=== PATIENT | male | born 1985 | race Caucasian/White ===

== ENCOUNTER 2019-01-07 13:18 | Emergency (ER) | payer MEDICAID ==
[2019-01-07] MEDS ORDERED: Morphine 2 MG/ML Syringe IVPUSH ONE (13:37)
[2019-01-07] MEDS ORDERED: Sodium Chloride 0.9% 10 ML Syringe FLUSH PRN (13:38)
[2019-01-07] MEDS ORDERED: Ketorolac 30 MG/ML SDV IVPUSH ONE (13:38)
[2019-01-07] MEDS ORDERED: Morphine 2 MG/ML Syringe ONE (13:49)
[2019-01-07] MEDS ORDERED: LORazepam 2 MG/ML SDV IVPUSH ONE (13:50)
--- NOTE | 2019-01-07 13:52 | EDM.PDOC ---
ED HPI GENERAL MEDICAL PROBLEM - General Stated Complaint: ABDOMINAL PAIN Time Seen by Provider: 01/07/19 13:30 Source of Information: Reports: Patient, Other (friends) History Limitations: Reports: Other (pain and abdominal cramping) - History of Present Illness INITIAL COMMENTS - FREE TEXT/NARRATIVE: This is a 33yo M here for severe 10/10 writhing hypogastric abdominal pain. He states he cannot stand it. He was dropped off by his friends. He is from [facility] and denies any prior abdominal issues. He is a methamphetamine user but denies other drugs. He denies other concerns. No BM issues, no appetite issues. He states his pain started 6 hours ago and has worsened the whole drive up here. His friends note that he started to get confused and then they brought him to the ER. Onset: Sudden Duration: Hour(s):, Getting Worse Location: Reports: Abdomen Quality: Reports: Stabbing Severity: Severe Improves with: Reports: None Worsens with: Reports: None Associated Symptoms: Reports: Confusion - Related Data Allergies Allergy/AdvReac Type Severity Reaction Status Date / Time No Known Allergies Allergy Verified 01/07/19 13:39 ED ROS GENERAL - Review of Systems Review Of Systems: ROS reveals no pertinent complaints other than HPI. ED EXAM, GI/ABD - Physical Exam Exam: See Below Exam Limited By: Other (Patient is at times perfectly coherent and then other times babbling for a brief moment and possibly due to the pain other other drug use.) General Appearance: Alert, WD/WN, Severe Distress Eyes: Bilateral: EOMI Ears: Normal External Exam Nose: Normal Inspection Throat/Mouth: Normal Inspection Head: Atraumatic, Normocephalic Neck: Normal Inspection, Supple, Non-Tender Respiratory/Chest: No Respiratory Distress, Lungs Clear, Normal Breath Sounds, No Accessory Muscle Use Cardiovascular: Normal Peripheral Pulses, Regular Rate, Rhythm GI/Abdominal Exam: Normal Bowel Sounds, Guarding, Tender Rectal (Males) Exam: Normal Exam Back Exam: Normal Inspection, Full Range of Motion Extremities: Normal Inspection, Normal Range of Motion, Non-Tender Neurological: Alert, CN II-XII Intact, Normal Cognition, Disoriented Psychiatric: Anxious Skin Exam: Warm, Dry, Intact, Normal Color Course - Vital Signs Last Recorded V/S: Last Vital Signs Temp Pulse 93 01/07/19 14:39 Resp 20 01/07/19 14:39 BP 146/86 H 01/07/19 14:39 Pulse Ox 100 01/07/19 14:39 - Orders/Labs/Meds Orders: Active Orders 24 hr Category Date Time Status Cardiac Monitoring [RC] .As Directed Care 01/07/19 14:47 Active Lizama Catheter Insertion [Insert Urinary Catheter] [OM. Care 01/07/19 16:00 Ordered PC] Q24H Urinary Catheter Assessment [RC] ASDIRECTED Care 01/07/19 15:49 Active Sodium Chloride 0.9% [Saline Flush] Med 01/07/19 13:38 Active 10 ml FLUSH ASDIRECTED PRN Peripheral IV Insertion Adult [OM.PC] Routine Oth 01/07/19 13:38 Ordered Medication Orders Sodium Chloride (Saline Flush) 10 ml FLUSH ASDIRECTED PRN PRN Reason: Keep Vein Open Labs: Laboratory Tests 01/07/19 01/07/19 01/07/19 Range/Units 13:40 13:40 13:40 WBC 10.9 (4.0-11.0) K/uL RBC 5.23 (4.50-6.50) M/uL Hgb 15.3 (13.0-18.0) g/dL Hct 44.2 (40.0-54.0) % MCV 85 (76-96) fL MCH 29.3 (27.0-32.0) pg MCHC 34.6 (31.0-35.0) g/dL RDW 13.0 (11.0-16.0) % Plt Count 257 (150-400) K/uL MPV 10.6 H (6.0-10.0) fL Neut % (Auto) 81.2 H (45.0-70.0) % Lymph % (Auto) 11.8 L (20.0-40.0) % [place] % (Auto) 6.0 (3.0-10.0) % Eos % (Auto) 0.7 L (1.0-5.0) % Baso % (Auto) 0.3 (0.0-0.5) % Neut # (Auto) 8.85 H (2.00-7.50) K/uL Lymph # (Auto) 1.28 L (1.50-4.00) K/uL [place] # (Auto) 0.65 (0.20-0.80) K/uL Eos # (Auto) 0.08 (0.04-0.40) K/uL Baso # (Auto) 0.03 (0.02-0.10) K/uL Sodium 139 (136-145) mmol/L Potassium 3.7 (3.5-5.1) mmol/L Chloride 101 (98-107) mmol/L Carbon Dioxide 23.5 (21.0-32.0) mmol/L Anion Gap 18.2 H (5.0-15.0) mmol/L BUN 12 (8-26) mg/dL Creatinine 0.97 (0.70-1.30) mg/dL Est Cr Clr Drug Dosing TNP Estimated GFR (MDRD) > 60 (>60) MLS/MIN BUN/Creatinine Ratio 12.4 (6-25) Glucose 104 H (74-100) mg/dL Lactic Acid 1.33 (0.90-1.70) mmol/L Calcium 8.8 (8.5-10.1) mg/dL Total Bilirubin 1.3 H (0.0-1.0) mg/dL AST 21 (15-37) U/L ALT 32 (12-78) U/L Alkaline Phosphatase 94 (46-116) U/L Total Protein 7.7 (6.4-8.2) g/dL Albumin 4.1 (3.4-5.0) g/dL Globulin 3.6 (2.2-4.2) g/dL Albumin/Globulin Ratio 1.1 (0.8-2.0) Amylase 21 L (25-115) U/L Urine Color Urine Appearance (CLEAR) Urine pH (5.0-8.0) Ur Specific [place] (1.003-1.030) Urine Protein (NEGATIVE) mg/dL Urine Glucose (UA) (NEGATIVE) mg/dL Urine Ketones (NEGATIVE) mg/dL Urine Occult Blood (NEGATIVE) Urine Nitrite (NEGATIVE) Urine Bilirubin (NEGATIVE) Urine Urobilinogen (0.2-1.0) E.U./dL Ur Leukocyte Esterase (NEGATIVE) Urine RBC /HPF Urine WBC /HPF Ur Squamous Epith Cells /HPF Urine Bacteria /HPF Urine Opiates Screen (NEGATIVE) Ur Oxycodone Screen (NEGATIVE) Urine Methadone Screen (NEGATIVE) Ur Barbiturates Screen (NEGATIVE) Ur Tricyclics Screen (NEGATIVE) Ur Phencyclidine Scrn (NEGATIVE) Ur Amphetamine Screen (NEGATIVE) U Methamphetamines Scrn (NEGATIVE) Urine MDMA Screen (NEGATIVE) U Benzodiazepines Scrn (NEGATIVE) U Cocaine Metab Screen (NEGATIVE) U Marijuana (THC) Screen (NEGATIVE) 01/07/19 01/07/19 Range/Units 14:48 14:48 WBC (4.0-11.0) K/uL RBC (4.50-6.50) M/uL Hgb (13.0-18.0) g/dL Hct (40.0-54.0) % MCV (76-96) fL MCH (27.0-32.0) pg MCHC (31.0-35.0) g/dL RDW (11.0-16.0) % Plt Count (150-400) K/uL MPV (6.0-10.0) fL Neut % (Auto) (45.0-70.0) % Lymph % (Auto) (20.0-40.0) % [place] % (Auto) (3.0-10.0) % Eos % (Auto) (1.0-5.0) % Baso % (Auto) (0.0-0.5) % Neut # (Auto) (2.00-7.50) K/uL Lymph # (Auto) (1.50-4.00) K/uL [place] # (Auto) (0.20-0.80) K/uL Eos # (Auto) (0.04-0.40) K/uL Baso # (Auto) (0.02-0.10) K/uL Sodium (136-145) mmol/L Potassium (3.5-5.1) mmol/L Chloride (98-107) mmol/L Carbon Dioxide (21.0-32.0) mmol/L Anion Gap (5.0-15.0) mmol/L BUN (8-26) mg/dL Creatinine (0.70-1.30) mg/dL Est Cr Clr Drug Dosing Estimated GFR (MDRD) (>60) MLS/MIN BUN/Creatinine Ratio (6-25) Glucose (74-100) mg/dL Lactic Acid (0.90-1.70) mmol/L Calcium (8.5-10.1) mg/dL Total Bilirubin (0.0-1.0) mg/dL AST (15-37) U/L ALT (12-78) U/L Alkaline Phosphatase (46-116) U/L Total Protein (6.4-8.2) g/dL Albumin (3.4-5.0) g/dL Globulin (2.2-4.2) g/dL Albumin/Globulin Ratio (0.8-2.0) Amylase (25-115) U/L Urine Color Yellow Urine Appearance Clear (CLEAR) Urine pH >= 9.0 H (5.0-8.0) Ur Specific [place] 1.015 (1.003-1.030) Urine Protein 30 H (NEGATIVE) mg/dL Urine Glucose (UA) Negative (NEGATIVE) mg/dL Urine Ketones 40 H (NEGATIVE) mg/dL Urine Occult Blood Small H (NEGATIVE) Urine Nitrite Negative (NEGATIVE) Urine Bilirubin Negative (NEGATIVE) Urine Urobilinogen 1.0 (0.2-1.0) E.U./dL Ur Leukocyte Esterase Negative (NEGATIVE) Urine RBC 10-20 H /HPF Urine WBC Not seen /HPF Ur Squamous Epith Cells Not seen /HPF Urine Bacteria Not seen /HPF Urine Opiates Screen Negative (NEGATIVE) Ur Oxycodone Screen Negative (NEGATIVE) Urine Methadone Screen Positive H (NEGATIVE) Ur Barbiturates Screen Negative (NEGATIVE) Ur Tricyclics Screen Negative (NEGATIVE) Ur Phencyclidine Scrn Negative (NEGATIVE) Ur Amphetamine Screen Positive H (NEGATIVE) U Methamphetamines Scrn Negative (NEGATIVE) Urine MDMA Screen Negative (NEGATIVE) U Benzodiazepines Scrn Negative (NEGATIVE) U Cocaine Metab Screen Negative (NEGATIVE) U Marijuana (THC) Screen Negative (NEGATIVE) Meds: Medications Generic Name Dose Route Start Last Admin Trade Name Freq PRN Reason Stop Dose Admin Sodium Chloride 10 ml 01/07/19 13:38 Saline Flush FLUSH ASDIRECTED PRN Keep Vein Open Discontinued Medications Generic Name Dose Route Start Last Admin Trade Name Freq PRN Reason Stop Dose Admin Hydromorphone HCl Confirm 01/07/19 13:54 01/07/19 15:43 Dilaudid Administered 01/07/19 13:55 Not Given Dose 2 mg .ROUTE .STK-MED ONE Hydromorphone HCl 1 mg 01/07/19 13:50 01/07/19 15:51 Dilaudid IVPUSH 01/07/19 13:51 1 mg ONETIME ONE Administration Hydromorphone HCl Confirm 01/07/19 14:10 01/07/19 15:43 Dilaudid Administered 01/07/19 14:11 Not Given Dose 2 mg .ROUTE .STK-MED ONE Hydromorphone HCl 2 mg 01/07/19 14:00 01/07/19 15:50 Dilaudid IVPUSH 01/07/19 14:01 2 mg ONETIME ONE Administration Hydromorphone HCl Confirm 01/07/19 16:10 Dilaudid Administered 01/07/19 16:11 Dose 2 mg .ROUTE .STK-MED ONE Ketorolac Tromethamine 30 mg 01/07/19 13:38 01/07/19 15:42 Toradol IVPUSH 01/07/19 13:39 30 mg ONETIME ONE Administration Lidocaine HCl Confirm 01/07/19 14:22 01/07/19 15:43 Xylocaine 2% Jelly Administered 01/07/19 14:23 Not Given Dose 5 ml .ROUTE .STK-MED ONE Lidocaine HCl 10 ml 01/07/19 15:48 Xylocaine 2% Jelly MUCMEM 01/07/19 15:49 ONETIME ONE Lorazepam 1 mg 01/07/19 13:50 01/07/19 15:41 Ativan IVPUSH 01/07/19 13:51 1 mg ONETIME ONE Administration Lorazepam Confirm 01/07/19 13:57 01/07/19 15:43 Ativan Administered 01/07/19 13:58 Not Given Dose 2 mg .ROUTE .STK-MED ONE Morphine Sulfate 4 mg 01/07/19 13:37 01/07/19 15:42 Morphine IVPUSH 01/07/19 13:38 4 mg ONETIME ONE Administration Morphine Sulfate Confirm 01/07/19 13:49 01/07/19 15:43 Morphine Administered 01/07/19 13:50 Not Given Dose 2 mg .ROUTE .STK-MED ONE - Re-Assessments/Exams Free Text/Narrative Re-Assessment/Exam: Patient given 4mg IV morphine and 30mg IV toradol and waited over 20 min without improvement of pain. Patient given 1 mg dilaudid and 1mg ativan prior to CT abdomen/pelvis with minimal improvement. Patient returned from CT and after another 15-20 minutes continued to have severe pain and writing. Patient was then given 2mg dilauded. Nurse noted decreased respirations and sedation and then cessation of breathing. She administered narcan and called code blue. At the time I was returning from the CT reading room and per nurse we arrived within 1 min of calling her code. At the time of arrival the patient saturations quickly [place] to O2 100% and BP elevated at 164/108 and respirations 18 and alert. Patient still had some abdominal pain but appeared improved. Edgar called for attending transfer of patient. Departure - Departure Time of Disposition: 16:00 Disposition: DC/Tfer to [facility] 02 Condition: Undetermined Clinical Impression: Colitis, Confusion, Methamphetamine abuse, Severe pain Appendicitis, acute Qualifiers: Acute appendicitis type: unspecified acute appendicitis type Qualified Code(s) : K35.80 - Unspecified acute appendicitis - Discharge Information Referrals: PCP,None [Primary Care Provider] - - Problem List & Annotations (1) Appendicitis, acute SNOMED Code(s): 89892420 Code(s): K35.80 - UNSPECIFIED ACUTE APPENDICITIS Status: Acute Current Visit: Yes Qualifiers: Acute appendicitis type: unspecified acute appendicitis type Qualified Code (s): K35.80 - Unspecified acute appendicitis (2) Colitis SNOMED Code(s): 58967209 Code(s): K52.9 - NONINFECTIVE GASTROENTERITIS AND COLITIS, UNSPECIFIED Status: Acute Current Visit: Yes (3) Confusion SNOMED Code(s): 379716493 Code(s): R41.0 - DISORIENTATION, UNSPECIFIED Status: Acute Current Visit : Yes (4) Methamphetamine abuse SNOMED Code(s): 448531711 Code(s): F15.10 - OTHER STIMULANT ABUSE, UNCOMPLICATED Status: Acute Current Visit: Yes (5) Severe pain SNOMED Code(s): 38287001 Code(s): R52 - PAIN, UNSPECIFIED Status: Acute Current Visit: Yes - Problem List Review Problem List Initiated/Reviewed/Updated: Yes - My Orders Last 24 Hours: My Active Orders 01/07/19 13:38 Sodium Chloride 0.9% [Saline Flush] 10 ml FLUSH ASDIRECTED PRN Peripheral IV Insertion Adult [OM.PC] Routine 01/07/19 14:47 Cardiac Monitoring [RC] .As Directed 01/07/19 15:49 Urinary Catheter Assessment [RC] ASDIRECTED 01/07/19 16:00 Lizama Catheter Insertion [Insert Urinary Catheter] [OM.PC] Q24H - Assessment/Plan Last 24 Hours: My Active Orders 01/07/19 13:38 Sodium Chloride 0.9% [Saline Flush] 10 ml FLUSH ASDIRECTED PRN Peripheral IV Insertion Adult [OM.PC] Routine 01/07/19 14:47 Cardiac Monitoring [RC] .As Directed 01/07/19 15:49 Urinary Catheter Assessment [RC] ASDIRECTED 01/07/19 16:00 Lizama Catheter Insertion [Insert Urinary Catheter] [OM.PC] Q24H Plan: Patient to be transferred to [facility] under Dr. Elizabeth. I did talk to Dr. Hills prior to the ER. Patient vitals stable on transfer and patient pain under improved control of 3-4/10 pain. Patient was given 1mg dilaudid prior to discharge and counseled EMS and ACLS personnel of his prior respiratory depression and use of Narcan. 1mg Dilaudid was also given to EMS for administration q1hrs prn.
[2019-01-07] MEDS ORDERED: HYDROmorphone 2 MG/ML Syringe ONE ×3 (13:54→16:10)
[2019-01-07] MEDS ORDERED: LORazepam 2 MG/ML SDV ONE (13:57)
[2019-01-07] MEDS ORDERED: Lidocaine 2% Jelly 5 ML Urojet ONE (14:22)
--- NOTE | 2019-01-07 14:42 | CT ---
DATE OF SERVICE: 01/07/2019 CLINICAL DATA: Abdominal Pain Unenhanced abdomen and pelvic CT: Multislice acquisition through the abdomen and pelvis without IV or oral contrast was performed. No priors. Motion artifact degrades image quality. The lung bases are clear. The dome of the liver is not included. The visualized liver appears normal. No focal hepatic lesions. Motion artifact degrades visualization of the gallbladder. No gross abnormalities. The spleen appears grossly normal. The pancreas appears normal. The right and left adrenals appear normal. The right and left kidneys appear normal. No nephrocalcinosis or nephrolithiasis. No hydronephrosis or hydroureter. The bladder is fluid filled. It appears normal. There is gas and stool present throughout the colon. It is moderately distended. Colitis should be considered. The appendix is mildly dilated measuring 7 mm in outside diameter. Early appendicitis should be considered. No evidence of periappendiceal abscess. There is small moderate free fluid within the pelvis. No free air. No dilated loops of small bowel. No adenopathy. No aortic aneurysm. MTDD
[2019-01-07] MEDS: HYDROmorphone 2 MG/ML SDV IVPUSH ONE ×3 (15:41→16:15)
[2019-01-07] MEDS ORDERED: Lidocaine 2% Jelly 10 ML Urojet MUCMEM ONE (15:48)
[2019-01-07] MEDS: HYDROmorphone 2 MG/ML Syringe IVPUSH ONE ×2 (15:49→15:50)
== END 2019-01-07 16:15 ==
LOC: LB.ED 13:18
DX: K52.9 Noninfective gastroenteritis and colitis, unspecified (principal); K35.80 Unspecified acute appendicitis; F15.10 Other stimulant abuse, uncomplicated
CPT/HCPCS: 36415; 51702; 74176; 80053; 80307; 81001; 82150; 83605; 85025; 96374; 96375; 99285-25; J1170; J1885; J2060; J2270